=== PATIENT | female | born 1985 | race Caucasian/White ===

== ENCOUNTER 2021-02-07 10:47 | Emergency (ER) | payer BC ==
[2021-02-07 11:54] LABS: Absolute Lymphocytes (CBC) 0.9 K/uL (0.7-4.9); Basophils % 0.5 % (0-1.3); Hematocrit 41.3 % (36.0-45.0); Lymphocytes % 14.1 % (15.3-44.8); MPV 8.7 fL (7.6-11.3); RBC Red Blood Cell Count 4.61 M/uL (3.86-4.86)
--- NOTE | 2021-02-07 12:07 | RAD REPORT ---
EXAM DESCRIPTION: CT - Head Brain Wo Cont - 02/07/2021 11:54 am CLINICAL HISTORY: Dizziness COMPARISON: None. TECHNIQUE: Computed axial tomography of the head was obtained. IV contrast was not requested. All CT scans are performed using dose optimization technique as appropriate and may include automated exposure control or mA/KV adjustment according to patient size. FINDINGS: An intracranial bleed is not seen . The ventricles are normal in caliber. No extra-axial fluid collection is noted. Fluid within the sinuses/ mastoids is not seen. IMPRESSION: No acute intracranial abnormality is seen. If patient's symptoms persist MRI of the bra in would be recommended.
[2021-02-07 12:12] LABS: Protime INR 1.13
--- NOTE | 2021-02-07 12:15 | RAD REPORT ---
EXAM DESCRIPTION: [place] Angio02/07/2021 11:54 am CLINICAL HISTORY: Dizziness COMPARISON: None TECHNIQUE: 50 cc Isovue 370 was administered intravenously. 3D MIP reconstruction performed All CT scans are performed using dose optimization technique as appropriate and may include automated exposure control or mA/KV adjustment according to patient size. FINDINGS: The common carotid, internal carotid external carotid arteries bilaterally are normal elvi iber. No significant stenosis. Right vertebral artery is dominant. Vertebral arteries appear unremarkable. No dissection seen IMPRESSION: Unremarkable exam NASCET criteria used. Mild 0-49% stenosis Moderate 50-69% stenosis Severe 70-99% stenosis
--- NOTE | 2021-02-07 12:19 | RAD REPORT ---
EXAM DESCRIPTION: CTHead angio02/07/2021 11:54 am CLINICAL HISTORY: Dizziness COMPARISON: None TECHNIQUE: CT angiogram of the head was obtained. 3D MIPS reconstruction performed. All CT scans are performed using dose optimization technique as appropriate and may include automated exposure control or mA/KV adjustment according to patient size. FINDINGS: The basilar, internal carotid, anterior cerebral, middle cerebral and posterior cerebral a rteries are normal caliber. An aneurysm is not seen. A significant stenosis is not noted. IMPRESSION: Unremarkable CT angiogram head.
[2021-02-07 12:30] LABS: ALT/SGPT 19 U/L (12-78); AST/SGOT 14 U/L (15-37); Albumin 4.3 g/dL (3.4-5.0); Alkaline Phosphatase 35 U/L (45-117); BUN Blood Urea Nitrogen 16 mg/dL (7-18); Bicarbonate 27 mmol/L (21-32); Bilirubin Direct 0.2 mg/dL (0-0.2); Bilirubin Total 0.6 mg/dL (0.2-1.0); Glucose Level 99 mg/dL (74-106); NT PRO-BNP 50 pg/mL (<125); Potassium 3.9 mmol/L (3.5-5.1); Protein, Total 7.6 g/dL (6.4-8.2); Sodium Level 138 mmol/L (136-145); Troponin (Emerg Dept Use Only) < 0.02 ng/mL (0.0-0.045)
--- NOTE | 2021-02-07 12:46 | RAD REPORT ---
EXAM DESCRIPTION: RAD - Chest Single View - 02/07/2021 12:40 pm CLINICAL HISTORY: weakness, fever Chest pain. COMPARISON: No comparisons FINDINGS: Portable technique limits examination quality. The lungs are grossly clear. The heart is normal in size. No displaced fractures. IMPRESSION: No acute intrathoracic process suspected.
[2021-02-07] MEDS ORDERED: MECLIZINE HCL 12.5 MG TAB ONE ×2 (14:07→14:10)
[2021-02-07] MEDS ORDERED: ONDANSETRON 4 MG (ODT) TAB ONE (14:07)
[2021-02-07 14:29] LABS: Urine Blood Negative (Negative); Urine Glucose Negative (Negative); Urine Protein Negative (Negative); Urine Specific Gravity 1.015 (1.005-1.030); Urine pH 7.5 (5.0-7.0)
[2021-02-07] MEDS ORDERED: KETOROLAC 30 MG/ML INJ ONE (15:11)
[2021-02-07] MEDS ORDERED: METOCLOPRAMIDE 10 MG/2mL INJ ONE (15:11)
[2021-02-07] MEDS ORDERED: NA CHLORIDE 0.9% 250 ML ONE (15:12)
[2021-02-07] MEDS ORDERED: DIPHENHYDRAMINE 50 MG/ML VIAL ONE (15:12)
--- NOTE | 2021-02-07 15:15 | EDPHYS ---
Physician Documentation [facility] Name: Brissa Salazar Age: 35 yrs Sex: Female : 1985 Arrival Date: 02/07/2021 Time: 10:50 Bed DX2 Private MD: ED Physician Regan Adhikari HPI: 02/07 11:30 This 35 yrs old Female presents to ER via Ambulatory with complaints of jmm Dizziness, Headache, Vomiting, Body aches. 11:30 The patient presents with dizziness. Onset: The symptoms/episode began/occurred jmm acutely, 1 week(s) ago. Modifying factors: the symptoms are aggravated by movement of head, standing up, changing position. Associated signs and symptoms: Pertinent positives: vomiting. The patient has not experienced similar symptoms in the past. Historical: - Allergies: 11:27 No Known Allergies; da3 - Immunization history:: Jesus Manuel and Jesus Manuel 1 shot only. - Social history:: Smoking status: Patient denies any tobacco usage or history of. ROS: 11:30 Constitutional: Negative for fever, chills, and weight loss, Cardiovascular: Negative jmm for chest pain, palpitations, and edema, Respiratory: Negative for shortness of breath, cough, wheezing, and pleuritic chest pain. 11:30 Neuro: Positive for dizziness. 11:30 All other systems are negative. Exam: 11:30 Constitutional: This is a well developed, well nourished patient who is awake, alert, jmm and in no acute distress. Head/Face: atraumatic. 11:30 ENT: Moist Mucus Membranes Neck: Trachea midline, Supple Chest/axilla: Normal chest wall appearance and motion. Cardiovascular: Regular rate and rhythm. No edema appreciated Respiratory: Normal respirations, no respiratory distress appreciated Abdomen/GI: Non distended, soft Back: Normal ROM Skin: General appearance color normal MS/ Extremity: Moves all extremities, no obvious deformities appreciated, no edema noted to the lower extremities 11:30 Eyes: horizontal nystagmus noted. 11:30 Neuro: Orientation: is normal, Mentation: is normal, Memory: is normal. 11:30 Psych: Behavior/mood is pleasant, cooperative. Vital Signs: 11:25 BP 131 / 83; Pulse 106; Resp 20; Temp 99.4; Pulse Ox 97% on R/A; da3 14:34 BP 126 / 80; Pulse 98; Resp 18; Pulse Ox 98% on R/A; ld1 MDM: 11:37 Patient medically screened. [facility] 15:24 Data reviewed: vital signs, nurses notes. Counseling: I had a detailed discussion with marguerite the patient and/or guardian regarding: the historical points, exam findings, and any diagnostic results supporting the discharge/admit diagnosis, lab results, radiology results, the need for outpatient follow up, to return to the emergency department if symptoms worsen or persist or if there are any questions or concerns that arise at home. ED course: Is alert nontoxic in appearance in the ED. Symptoms alleviated after meclizine, ketorolac. Imaging studies are negative. I do not currently suspect a central cause of vertigo. Patient is advised to follow-up with neurology and ENT for further evaluation. Patient is otherwise given strict return precautions. Patient understood and agreed plan of care.. 02/07 11:32 Order name: Basic Metabolic Panel; Complete Time: 12:32 [facility] 02/07 11:32 Order name: CBC with Diff; Complete Time: 12:13 [facility] 02/07 11:32 Order name: LFT's; Complete Time: 12:32 [facility] 02/07 11:32 Order name: Magnesium; Complete Time: 12:32 [facility] 02/07 11:32 Order name: NT PRO-BNP; Complete Time: 12:32 [facility] 02/07 11:32 Order name: PT-INR; Complete Time: 12:25 [facility] 02/07 11:32 Order name: Troponin (emerg Dept Use Only); Complete Time: 12:32 [facility] 02/07 11:32 Order name: XRAY Chest (1 view); Complete Time: 12:55 [facility] 02/07 11:32 Order name: CT Head Angio; Complete Time: 12:25 [facility] 02/07 13:01 Order name: CREATININE WHOLE BLOOD; Complete Time: 13:02 [facility] 02/07 13:21 Order name: SARS-COV-2 RT PCR; Complete Time: 13:21 [facility] 02/07 14:29 Order name: Urine Dipstick-Ancillary; Complete Time: 14:31 [facility] 02/07 14:29 Order name: Urine --Ancillary (enter results); Complete Time: 16:27 nv 02/07 11:32 Order name: EKG; Complete Time: 11:32 [facility] 02/07 11:32 Order name: EKG - Nurse/Tech; Complete Time: 13:51 [facility] 02/07 11:32 Order name: IV Saline Lock; Complete Time: 13:51 [facility] 02/07 11:32 Order name: Labs collected and sent; Complete Time: 13:51 [facility] 02/07 11:32 Order name: O2 Per Protocol; Complete Time: 13:51 [facility] 02/07 11:32 Order name: O2 Sat Monitoring; Complete Time: 13:51 [facility] 02/07 11:32 Order name: CT Neck Angio; Complete Time: 12:25 [facility] 02/07 11:32 Order name: CT Head Brain wo Cont; Complete Time: 12:13 [facility] 02/07 11:32 Order name: Urine Dipstick-Ancillary (obtain specimen); Complete Time: 14:34 [facility] 02/07 11:32 Order name: Urine Test (obtain specimen); Complete Time: 14:34 [facility] Administered Medications: 13:48 Drug: Zofran (Ondansetron) 4 mg Route: PO; kg 14:56 Follow up: Response: No adverse reaction ld1 13:48 Drug: Meclizine 50 mg Route: PO; kg 14:56 Follow up: Response: No adverse reaction ld1 14:56 Drug: Reglan (metoCLOPramide) 20 mg Route: IVP; Site: right antecubital; ld1 14:56 Follow up: Response: No adverse reaction ld1 14:56 Drug: diphenhydrAMINE 12.5 mg Route: IVP; Site: right antecubital; ld1 14:56 Follow up: Response: No adverse reaction ld1 14:56 Drug: NS 0.9% 250 ml Route: IV; Rate: bolus; Site: right antecubital; ld1 14:57 Follow up: Response: No adverse reaction; IV Intake: 250ml ld1 14:56 Drug: Ketorolac 30 mg Route: IVP; Site: right antecubital; ld1 14:56 Follow up: Response: No adverse reaction ld1 Disposition: 16:27 Co-signature as Attending Physician, Regan ALEJANDRE I agree with the assessment and rn plan of care. Attestation: The patient's history, exam findings, diagnostics, and a summary of any interventions or procedures was reviewed in detail with Bradley GANN. Disposition Summary: 02/07/21 15:14 Discharge Ordered Location: Home [facility] Condition: Stable [facility] Diagnosis - Vertigo [facility] Followup: [facility] - With: Timmy Lantigua MD - When: 2 - 3 days - Reason: Recheck today's complaints, Continuance of care, Re-evaluation by your physician Followup: [facility] - With: Isi Langford MD - When: 2 - 3 days - Reason: Recheck today's complaints, Continuance of care, Re-evaluation by your physician Discharge Instructions: - Discharge Summary Sheet [facility] - Vertigo [facility] - How to Perform the Meche Maneuver [facility] Forms: - Medication Reconciliation Form [facility] - Thank You Letter [facility] - Antibiotic Education [facility] - Prescription Opioid Use [facility] Prescriptions: - Meclizine 25 mg Oral Tablet - take 1 tablet by ORAL route every 8 hours As needed; 30 tablet; Refills: 0, [facility] Product Selection Permitted Signatures: Dispatcher [employer] EDNJ Bradley Macias PA PA [facility] Regan Adhikari MD MD rn Guadalupe Rich, RN RN ld1 Jennifer Garcia, RN RN kg Darryn Luz, RN RN da3 Corrections: (The following items were deleted from the chart) 12:25 11:32 CORONAVIRUS+Z ordered. [facility]
--- NOTE | 2021-02-07 15:15 | ER ---
Nurse's Notes [facility] Name: Brissa Salazar Age: 35 yrs Sex: Female : 1985 Arrival Date: 02/07/2021 Time: 10:50 Bed DX2 Private MD: Diagnosis: Vertigo Presentation: 02/07 11:24 Chief complaint: Patient states: head ache. Coronavirus screen: Client denies travel da3 out of the [place] in the last 14 days. Ebola Screen: No symptoms or risks identified at this time. Risk Assessment: Do you want to hurt yourself or someone else? Patient reports no desire to harm self or others. 11:24 Method Of Arrival: Ambulatory da3 11:24 Acuity: BREONNA 4 da3 Triage Assessment: 11:26 General: Appears in no apparent distress. uncomfortable. Pain: Pain currently is 9 out da3 of 10 on a pain scale. Quality of pain is described as. Historical: - Allergies: 11:27 No Known Allergies; da3 - Immunization history:: Jesus Manuel and Jesus Manuel 1 shot only. - Social history:: Smoking status: Patient denies any tobacco usage or history of. Assessment: 14:34 General: Appears in no apparent distress. comfortable, Behavior is calm, cooperative, ld1 appropriate for age. Pain: Complains of pain in face Pain does not radiate. Pain currently is 8 out of 10 on a pain scale. Quality of pain is described as throbbing, Pain began 2-3 days ago. Is continuous. Neuro: Level of Consciousness is awake, alert, obeys commands, Oriented to person, place, time, situation, Appropriate for age. Cardiovascular: Capillary refill < 3 seconds Patient's skin is warm and dry. Respiratory: Airway is patent Respiratory effort is even, unlabored, Respiratory pattern is regular, symmetrical. GI: Abdomen is flat, non-distended. : No signs and/or symptoms were reported regarding the genitourinary system. EENT: No signs and/or symptoms were reported regarding the EENT system. Derm: No signs and/or symptoms reported regarding the dermatologic system. Musculoskeletal: No signs and/or symptoms reported regarding the musculoskeletal system. Vital Signs: 11:25 BP 131 / 83; Pulse 106; Resp 20; Temp 99.4; Pulse Ox 97% on R/A; da3 14:34 BP 126 / 80; Pulse 98; Resp 18; Pulse Ox 98% on R/A; ld1 ED Course: 10:50 Patient arrived in ED. mr 11:22 [facility] jmm 11:22 Regan Adhikari MD is Attending Physician. jmm 11:25 Triage completed. da3 11:54 CT Head Angio In Process Unspecified. EDMS 11:54 CT Neck Angio In Process Unspecified. EDMS 11:54 CT Head Brain wo Cont In Process Unspecified. EDMS 12:40 XRAY Chest (1 view) In Process Unspecified. EDMS 15:13 Timmy Lantigua MD is Referral Physician. jmm 15:13 Isi Langford MD is Referral Physician. jmm 15:17 No provider procedures requiring assistance completed. IV discontinued, intact, ld1 bleeding controlled, No redness/swelling at site. Administered Medications: 13:48 Drug: Zofran (Ondansetron) 4 mg Route: PO; kg 14:56 Follow up: Response: No adverse reaction ld1 13:48 Drug: Meclizine 50 mg Route: PO; kg 14:56 Follow up: Response: No adverse reaction ld1 14:56 Drug: Reglan (metoCLOPramide) 20 mg Route: IVP; Site: right antecubital; ld1 14:56 Follow up: Response: No adverse reaction ld1 14:56 Drug: diphenhydrAMINE 12.5 mg Route: IVP; Site: right antecubital; ld1 14:56 Follow up: Response: No adverse reaction ld1 14:56 Drug: NS 0.9% 250 ml Route: IV; Rate: bolus; Site: right antecubital; ld1 14:57 Follow up: Response: No adverse reaction; IV Intake: 250ml ld1 14:56 Drug: Ketorolac 30 mg Route: IVP; Site: right antecubital; ld1 14:56 Follow up: Response: No adverse reaction ld1 Intake: 14:57 IV: 250ml; Total: 250ml. ld1 Outcome: 15:14 Discharge ordered by . jmm 15:17 Discharged to home ambulatory. ld1 15:17 Condition: stable 15:17 Discharge instructions given to patient, Instructed on discharge instructions, follow up and referral plans. medication usage, Demonstrated understanding of instructions, follow-up care, medications. 15:17 Patient left the ED. ld1 Signatures: Dispatcher [employer] EDMS Bradley Macias PA PA jmm Rivera, Mary mr Guadalupe Rich RN RN ld1 Jennifer Garcia RN RN kg Darryn Luz RN RN da3
[2021-02-07 15:26] LABS: Urine Specific Gravity/Preg 1.015 (1.005-1.030)
[2021-02-07 15:32] VITALS: TEMP 99.4
[2021-02-07 15:37] VITALS: BP 126/80; O2SAT 98
== END 2021-02-07 15:17 | disposition home or self-care (01) ==
LOC: ER 10:47
DX: R42 Dizziness and giddiness (principal); Z20.822 Contact with and (suspected) exposure to COVID-19
CPT/HCPCS: 93005; 85025; 80048; 36415; 83735; 81025; 85610; 82565; 80076; 81003; 84484; 83880; 70450; 70496; 70498; 71045; 96375; 96374; 99283; U0003; Q9967; J2765; J1200; J7050